=== PATIENT | female | born 1990 | race Two or more races ===

== ENCOUNTER 2021-10-20 11:32 | Emergency (ER) | payer OTHER ==
[~2021-10-20] VITALS: Ht 152.4 cm; Wt 62.0 kg
[2021-10-20 12:26] LABS: Basophils # (auto) 0 10 ^3/uL (0-0.2); Basophils % (auto) 0.5 % (0.0-2.0); Eosinophils # (auto) 0 10 ^3/uL (0-0.8); Eosinophils % (auto) 0.2 % (0.0-7.0); Hematocrit 42.8 % (36.0-46.0); Hemoglobin 13.8 g/dL (12.2-16.2); Lymphocytes # (auto) 3.6 10 ^3/uL (0.4-5.4); Mean Corpuscular Hgb Conc. 32.2 g/dL (32.0-36.0); Mean Corpuscular Volume 99.6 fL (80.0-100.0); Monocytes # (auto) 0.8 10 ^3/uL (0-1.3); Monocytes % (auto) 8.1 % (0.0-12.0); Neutrophils % (auto) 53.2 % (37.0-80.0); Red Cell Distribution Width 13.3 % (11.8-14.3); White Blood Cell 9.4 10^3/uL (4.4-10.8)
[2021-10-20 12:51] LABS: Albumin 3.6 g/dL (3.4-5.0); Potassium 3.6 mmol/L (3.5-5.1)
[2021-10-20 12:55] LABS: BUN/Creatinine Ratio 22.1; Bilirubin, Total 0.3 mg/dL (0.2-1.0); Total Protein 6.8 g/dL (6.4-8.2)
[2021-10-20] MEDS ORDERED: KETOROLAC TROMETH 30 MG/ML 1ML VIAL IV ONE (13:00)
[2021-10-20] MEDS ORDERED: SODIUM CHLORIDE 0.9% 1,000 ML IV ONE ×2 (13:00)
[2021-10-20 17:36] LABS: Urine Bacteria NONE SEEN /hpf (None Seen); Urine Blood Negative /uL (Negative); Urine Mucus FEW (None Seen); Urine Specific Gravity 1.033 (1.001-1.035); Urine WBC 61 /hpf (0 - 5)
[2021-10-20] MEDS ORDERED: cefTRIAXone 1GM/50ML D5W 50 ML IV ONE (17:45)
[2021-10-20 18:37] VITALS: BP 93/59
[2021-10-20] MEDS ORDERED: CEFD300C2 PO (19:17)
== END 2021-10-20 19:35 | disposition home or self-care (01) ==
LOC: ER 11:32
DX: N39.0 Urinary tract infection, site not specified (principal); R07.2 Precordial pain; N63.0 Unspecified lump in unspecified breast; Z90.49 Acquired absence of other specified parts of digestive tract
CPT/HCPCS: 36415; 71046; 80053; 81001; 81025; 83735; 84443; 84484; 85025; 93005; 96361; 96365; 96375; 99285; J0696; J1885; J7030